=== PATIENT | female | born 1980 | race Caucasian/White ===

== ENCOUNTER 2024-04-15 11:45 | Emergency (ER) | payer OTHER, SELFPAY | END 2024-04-15 15:48 | disposition home or self-care (01) | LOC: ERS 11:45 | DX: M48.04 Spinal stenosis, thoracic region (principal); F17.210 Nicotine dependence, cigarettes, uncomplicated; W18.2XXA Fall in (into) shower or empty bathtub, initial encounter; Y93.89 Activity, other specified | CPT/HCPCS: 72146; 72148 ==